=== PATIENT | female | born 2000 | race Caucasian/White ===

== ENCOUNTER 2023-09-10 12:55 | Emergency (ER) | payer OTHER ==
[~2023-09-10] VITALS: Ht 162.5 cm; Wt 63.5 kg
[2023-09-10] MEDS ORDERED: Motrin,Rufen800 MG PO (14:50)
== END 2023-09-10 15:02 | disposition home or self-care (01) ==
LOC: ED 12:55
DX: S50.01XA Contusion of right elbow, initial encounter (principal); F90.9 Attention-deficit hyperactivity disorder, unspecified type; Z88.8 Allergy status to other drugs, medicaments and biological substances; Y08.89XA Assault by other specified means, initial encounter; Y93.89 Activity, other specified; Y92.89 Other specified places as the place of occurrence of the external cause; Y99.8 Other external cause status